=== PATIENT | male | born 1990 | race Caucasian/White ===

== ENCOUNTER 2018-12-04 13:21 | Emergency (ER) | payer BC ==
[2018-12-04 13:31] VITALS: BP 118/64
[2018-12-04] MEDS ORDERED: Albuterol 2.5 MG/3 ML NEB.SOL* (0.083%) INH ONE (13:39)
--- NOTE | 2018-12-04 13:47 | UC ---
Respiratory Complaint HPI - HPI Summary HPI Summary: 28 year old male with no PMH, no medications, h/o TOB use presents with shortness of breath, - History of Current Complaint Chief Complaint: UCRespiratory Stated Complaint: COUGH Time Seen by Provider: 12/04/18 13:26 Hx Obtained From: Patient Onset/Duration: Sudden Onset - 11/30, Lasting Days, Worse Since - past 2 days Pain Intensity: 7 Pain Scale Used: 0-10 Numeric Character: Cough: Productive Aggravating Factors: Deep Breaths, Recumbent Position Alleviating Factors: Upright Position Associated Signs And Symptoms: Positive: Fever, Chills, Wheezing, URI, Nasal Congestion, Hoarseness, Sinus Discomfort. Negative: Calf Pain, Calf Swelling, Edema - Risk Factors Pulmonary Embolism Risk Factors: Smoking - Allergies/Home Medications Allergies/Adverse Reactions: Allergies Allergy/AdvReac Type Severity Reaction Status Date / Time No Known Allergies Allergy Verified 12/04/18 13:31 PMH/Surg Hx/FS Hx/Imm Hx Previously Healthy: Yes - Surgical History Surgical History: Unable to Obtain/Confirm - Family History Known Family History: Positive: Non-Contributory - Social History Alcohol Use: Daily Alcohol Amount: 6 PACK OVER THE WEEKEND Substance Use Type: None Smoking Status (MU): Light Every Day Tobacco Smoker Type: Cigarettes - Immunization History Most Recent Tetanus Shot: 2006 Review of Systems All Other Systems Reviewed And Are Negative: Yes Constitutional: Positive: Fever, Chills, Fatigue ENT: Positive: Sore Throat, Nasal Discharge, Sinus Congestion, Sinus Pain/ Tenderness Respiratory: Positive: Shortness Of Breath, Cough Genitourinary: Positive: Negative Neurological: Positive: Negative Is Patient Immunocompromised?: No Physical Exam Triage Information Reviewed: Yes Appearance: No Pain Distress, Well-Nourished, Ill-Appearing - moderate Vital Signs: Initial Vital Signs Temp 97.6 F 12/04/18 13:28 Pulse 84 12/04/18 13:28 Resp 18 12/04/18 13:28 BP 118/64 12/04/18 13:28 Pulse Ox 97 12/04/18 13:28 Vital Signs Reviewed: Yes Eyes: Positive: Conjunctiva Clear ENT: Positive: Pharynx normal, TMs normal, Uvula midline. Negative: Pharyngeal erythema, Nasal congestion, Nasal drainage, TM bulging, TM dull, TM red, Tonsillar swelling, Tonsillar exudate, Sinus tenderness Neck: Positive: Supple, Nontender, No Lymphadenopathy. Negative: Nuchal Rigidity, Enlarged Nodes @ Respiratory: Positive: No respiratory distress, No accessory muscle use, Wheezing - diffuse b/l. Negative: Respiratory distress, Decreased breath sounds , Crackles, Rhonchi, Stridor, Expiration Cardiovascular: Positive: RRR, No Murmur Skin Exam: Normal Respiratory Course/Dx - Course Course Of Treatment: CXR: negative Likely Viral Pneumonia due to symptoms. - ANtibitoics to cover in case bacterial since being placed on steroids - Steroids taper to decrease inflammation, improve breathin/30- 40mg 10/1- 30mg 10/2- 20mg 10/3- 20mg 10/4- 10mg - Over the counter medications as needed for cough, pain - Go to ER with increased symptoms, fever >101, neck stiffness, shortness of breath - [facility]k note given - Differential Dx/Diagnosis Differential Diagnosis/HQI/PQRI: Aspiration, Asthma, Bronchitis, Laryngitis, SARS Provider Diagnosis: Viral pneumonia Discharge ED - Sign-Out/Discharge Documenting (check all that apply): Patient Departure All imaging exams completed and their final reports reviewed: Yes - Discharge Plan Condition: Good Disposition: HOME Prescriptions: Albuterol HFA INHALER* [Ventolin HFA Inhaler*] 1 - 2 puff INH Q4H PRN #1 mdi PRN Reason: shortness of breath, cough Azithromyxin KAVITA (NF) [Z-Kavita (Zithromax) 250 mg tabs #6] 2 tab PO .TODAY, THEN 1 DAILY #6 tab predniSONE TAB* [Deltasone 10 MG TAB*] 4 tab PO .SEE TAP #10 tab Patient Education Materials: Prednisone (By mouth), Viral Pneumonia (ED) Forms: *Work Release Referrals: Danish Youssef MD [Primary Care Provider] - Additional Instructions: Viral Pneumonia - ANtibitoics to cover in case bacterial since being placed on steroids - Steroids taper to decrease inflammation, improve breathin/30- 40mg 10/1- 30mg 10/2- 20mg 10/3- 20mg 10/4- 10mg - Over the counter medications as needed for cough, pain - Go to ER with increased symptoms, fever >101, neck stiffness, shortness of breath - WOrk note given - Billing Disposition and Condition Condition: GOOD Disposition: Home
== END 2018-12-04 15:08 | disposition home or self-care (01) ==
LOC: UCEAST 13:21
DX: J12.9 Viral pneumonia, unspecified (principal); J06.9 Acute upper respiratory infection, unspecified; J02.9 Acute pharyngitis, unspecified; R06.2 Wheezing; J34.89 Other specified disorders of nose and nasal sinuses; F17.210 Nicotine dependence, cigarettes, uncomplicated
CPT/HCPCS: 71046; 99202; G0463